=== PATIENT | male | born 1970 | race Two or more races ===

== ENCOUNTER 2017-09-08 02:04 | Emergency (ER) | payer OTHER ==
[~2017-09-08] VITALS: Ht 185.4 cm; Wt 106.6 kg
[2017-09-08] MEDS ORDERED: IBUPROFEN 800 MG TAB PO ONE (07:45)
== END 2017-09-08 08:41 | disposition home or self-care (01) ==
LOC: ER 02:06
DX: S63.614A Unspecified sprain of right ring finger, initial encounter (principal); M79.641 Pain in right hand; W22.8XXA Striking against or struck by other objects, initial encounter; Y93.89 Activity, other specified; Y92.89 Other specified places as the place of occurrence of the external cause; Y99.8 Other external cause status
CPT/HCPCS: 29125; 73130